=== PATIENT | male | born 1940 | race Caucasian/White ===

== ENCOUNTER 2018-05-02 18:50 | Observation (INO) | payer OTHER ==
--- NOTE | 2018-05-02 19:36 | RAD REPORT ---
EXAM DESCRIPTION: CT - Head Brain Wo Cont - 05/02/2018 7:28 pm CLINICAL HISTORY: WEAKNESS CVA COMPARISON: No comparisons TECHNIQUE: All CT scans are performed using dose optimization technique as appropriate and may inclu de automated exposure control or mA/KV adjustment according to patient size. FINDINGS: No intracranial hemorrhage, hydrocephalus or extra-axial fluid collection.Advanced general ized brain atrophy is present with advanced periventricular and deep white matter chronic microvascul ar ischemic changes.Gliosis is seen in the left temporal lobe likely related to prior infarction. The paranasal sinuses and mastoids are clear. The calvarium is intact. IMPRESSION: No acute intracranial abnormality.
[2018-05-02] MEDS ORDERED: NA CHLORIDE 0.9% 1,000 ML ONE (19:37)
--- NOTE | 2018-05-02 19:48 | RAD REPORT ---
EXAM DESCRIPTION: RAD - Chest Single View - 05/02/2018 7:39 pm CLINICAL HISTORY: MALAISE Chest pain. COMPARISON: CHEST SINGLE VIEW dated 05/12/2015; CHEST SINGLE VIEW dated 04/23/2015 FINDINGS: Portable technique limits examination quality. The lungs are grossly clear. The heart is normal in size. No displaced fractures. IMPRESSION: No acute intrathoracic process suspected.
[2018-05-02 20:22] LABS: Absolute Lymphocytes (CBC) 1.2 K/uL (0.7-4.9); Absolute Monocytes 0.7 K/uL (0.1-1.3); Basophils % 0.4 % (0-1.3); Hematocrit 39.3 % (39.6-49.0); Lymphocytes % 16.6 % (15.3-44.8); MCH 32.8 pg (27.0-35.0); MCV 97.4 fL (80-100); MPV 8.6 fL (7.6-11.3); Monocytes % 10.2 % (3.3-12.3); RBC Red Blood Cell Count 4.03 M/uL (4.33-5.43)
[2018-05-02 20:37] LABS: Urine Blood TRACE (NEG); Urine Glucose NEGATIVE (NEG); Urine Protein NEGATIVE (NEG); Urine pH 7.5 (5.0-7.0)
[2018-05-02 20:43] LABS: Urine Bacteria NONE SEEN /HPF (NONE SEEN); Urine Culture Reflex Order NOT NEEDED; Urine RBC <5 /HPF (NONE SEEN)
[2018-05-02 20:47] LABS: Albumin 3.2 g/dL (3.4-5.0); Bilirubin Direct 0.2 mg/dL (0-0.2); Bilirubin Total 0.4 mg/dL (0.2-1.0); Magnesium 2.2 mg/dL (1.8-2.4); Potassium 4.6 mmol/L (3.5-5.1); Protein, Total 6.8 g/dL (6.4-8.2); Troponin (Emerg Dept Use Only) 0.02 ng/mL (0.0-0.045)
[2018-05-02 22:48] LABS: Arterial Blood Carboxyhemoglob 1.2 % (0-1.5); Blood Gas Oxyhemoglobin 96.4 % (94-97); Blood O2 Saturation 98.4 % (92-98.5)
--- NOTE | 2018-05-02 23:07 | EDPHYS ---
Physician Documentation [facility] Name: Bo Fitzpatrick Age: 77 yrs Sex: Male : 1940 Arrival Date: 05/02/2018 Time: 18:51 Bed 6 Private MD: ED Physician Eleazar Ordonez HPI: 05/02 23:48 This 77 yrs old Male presents to ER via EMS with complaints of altered mental gs status. 23:48 The patient's problem is reported as altered mental status, disoriented to place, time. gs Onset: The symptoms/episode began/occurred this morning. Duration: The episode is continuous. Associated signs and symptoms: Pertinent negatives: headache, seizure. Severity of symptoms: At their worst the symptoms were moderate in the emergency department the symptoms are unchanged. The patient has experienced similar episodes in the past, a few times. Historical: - Allergies: 19:02 No Known Allergies; sv - Home Meds: 19:28 allopurinol 300 mg Oral tab 1 tab once daily [Active]; aspirin 81 mg Oral TbEC 1 tab ak1 once daily [Active]; Colace 100 mg oral cap 1 cap once daily [Active]; Depakote Sprinkles 125 mg Oral cpSP 2 caps daily [Active]; Depakote Sprinkles 125 mg Oral cpSP 4 caps at bedtime [Active]; Namenda 10 mg oral tab 1 tab 2 times per day [Active]; senna 8.6 mg oral tab 1 tabs once daily [Active]; trazodone 100 mg Oral tab 1 tab at bedtime [Active]; acetaminophen-codeine 300-30 mg Oral tab 1 tab PRN [Active]; - PMHx: 19:02 Gout; CVA; psychotic disorder with delusions; UTI; Dementia; sv - PSHx: 19:02 Heart stents; prostatectomy; sv - Immunization history:: Adult Immunizations unknown. - Social history:: Smoking status: Patient/guardian denies using tobacco. - Ebola Screening: : No symptoms or risks identified at this time. ROS: 23:48 All other systems are negative. gs Exam: 23:48 Eyes: Pupils equal round and reactive to light, extra-ocular motions intact. Lids and gs lashes normal. Conjunctiva and sclera are non-icteric and not injected. Cornea within normal limits. Periorbital areas with no swelling, redness, or edema. Chest/axilla: Normal chest wall appearance and motion. Nontender with no deformity. No lesions are appreciated. Cardiovascular: Regular rate and rhythm with a normal S1 and S2. No gallops, murmurs, or rubs. Normal PMI, no JVD. No pulse deficits. Respiratory: Lungs have equal breath sounds bilaterally, clear to auscultation and percussion. No rales, rhonchi or wheezes noted. No increased work of breathing, no retractions or nasal flaring. Abdomen/GI: Soft, non-tender, with normal bowel sounds. No distension or tympany. No guarding or rebound. No evidence of tenderness throughout. Back: No spinal tenderness. No costovertebral tenderness. Full range of motion. Skin: Warm, dry with normal turgor. Normal color with no rashes, no lesions, and no evidence of cellulitis. MS/ Extremity: Pulses equal, no cyanosis. Neurovascular intact. Full, normal range of motion. 23:48 Constitutional: The patient appears alert, awake. 23:48 Neuro: Orientation: to person, Cranial nerves: CN II- XII are normal as tested, Motor: moves all fours, strength is 5/5 in all extremities, Sensation: no acute changes, pin prick testing is normal. 23:51 ECG was reviewed by the Attending Physician. Vital Signs: 19:02 BP 160 / 79; Pulse 71; Resp 16; Temp 98.9(TE); Pulse Ox 98% ; sv 20:19 BP 166 / 100; Pulse 66; Resp 14; Temp 98.6; Pulse Ox 98% on R/A; Pain 0/10; ak1 21:12 BP 172 / 95; Pulse 92; Resp 15; Pulse Ox 99% on R/A; ak1 05/03 00:23 BP 126 / 66; Pulse 63; Resp 14; Temp 98.3; Pulse Ox 97% on R/A; Pain 0/10; ak1 MDM: 05/02 19:12 Patient medically screened. 23:48 Differential diagnosis: CVA, TIA, metabolic disorder, drug effects. Data reviewed: vital signs, nurses notes. Response to treatment: the patient's symptoms have mildly improved after treatment, and as a result, I will admit patient. 05/02 19:14 Order name: Basic Metabolic Panel; Complete Time: 20:57 05/02 19:14 Order name: CBC with Diff; Complete Time: 20:47 05/02 19:14 Order name: LFT's; Complete Time: 20:57 05/02 19:14 Order name: Magnesium; Complete Time: 20:57 05/02 19:14 Order name: NT PRO-BNP; Complete Time: 20:57 05/02 19:14 Order name: PT-INR; Complete Time: 20:47 05/02 19:14 Order name: Troponin (emerg Dept Use Only); Complete Time: 20:57 05/02 19:14 Order name: XRAY Chest (1 view); Complete Time: 20:07 05/02 19:14 Order name: Urine Microscopic Only; Complete Time: 20:47 05/02 20:21 Order name: Urine Dipstick--Ancillary (enter results); Complete Time: 20:47 em 05/02 22:30 Order name: ABG; Complete Time: 23:42 05/02 22:30 Order name: AMMONIA; Complete Time: 23:06 05/02 23:51 Order name: Depakote 05/03 00:11 Order name: Valproic Acid (Depakene) Level EDTN 05/02 19:14 Order name: EKG; Complete Time: 19:15 05/02 19:14 Order name: Cardiac monitoring; Complete Time: 20:02 05/02 19:14 Order name: EKG - Nurse/Tech; Complete Time: 20:02 05/02 19:14 Order name: IV Saline Lock; Complete Time: 20:03 05/02 19:14 Order name: Labs collected and sent; Complete Time: 20:03 05/02 19:14 Order name: O2 Per Protocol; Complete Time: 20:03 05/02 19:14 Order name: O2 Sat Monitoring; Complete Time: 20:03 05/02 19:14 Order name: Urine Dipstick-Ancillary (obtain specimen); Complete Time: 19:34 05/02 19:14 Order name: CT Head Brain wo Cont; Complete Time: 20:07 05/02 19:35 Order name: EKG - Nurse/Tech; Complete Time: 20:01 ak1 EC:51 Rate is 79 beats/min. Rhythm is regular. [place] interval is normal. QRS interval is normal. gs QT interval is normal. T waves are Flattened. Clinical impression: NSR w/ Non-specific ST/T Changes. Interpreted by me. Administered Medications: 19:50 Drug: NS 0.9% 500 ml Route: IV; Rate: bolus; Site: right hand; ak1 20:21 Follow up: IV Status: Completed infusion ak1 23:56 Drug: NS 0.9% 1000 ml Route: IV; Rate: 125 ml/hr; Site: right hand; ak1 05/03 00:00 Follow up: IV Status: Infusion continued upon admission ak1 Disposition: 05/02/18 23:06 Hospitalization ordered by Mitzi Bundy for Observation. Preliminary diagnosis is Altered mental status, unspecified. - Bed requested for Telemetry/MedSurg (observation). - Status is Observation. ak1 - Condition is Stable. - Problem is new. - Symptoms have improved. UTI on Admission? No Signatures: Dispatcher [employer] EDMarisol Messer RN RN Fabiola Bustos RN RN bb Krenek, Amber, RN RN [facility] Eleazar Ordonez MD MD Corrections: (The following items were deleted from the chart) 05/02 23:48 23:06 Hospitalization Ordered by Mitzi Bundy MD for Observation. Preliminary bb diagnosis is Altered mental status, unspecified. Bed requested for Telemetry/MedSurg (observation). Status is Observation. Condition is Stable. Problem is new. Symptoms have improved. UTI on Admission? No. gs 05/03 00:53 05/02 23:48 05/02/2018 23:06 Hospitalization Ordered by Mitzi Bundy MD for ak1 Observation. Preliminary diagnosis is Altered mental status, unspecified. Bed requested for Telemetry/MedSurg (observation). Status is Observation. Condition is Stable. Problem is new. Symptoms have improved. UTI on Admission? No. bb
--- NOTE | 2018-05-02 23:07 | ER ---
Nurse's Notes [facility] Name: Bo Fitzpatrick Age: 77 yrs Sex: Male : 1940 Arrival Date: 05/02/2018 Time: 18:51 Bed 6 Private MD: Diagnosis: Altered mental status, unspecified Presentation: 05/02 18:45 Presenting complaint: EMS states: Pt lives at [facility], staff reported that he sv started leaning forward and was unable to walk today around 1700. Pt normally walks around the IN. BP 162/86 HR-82 RR-14 96% RA. Care prior to arrival: None. 18:45 Acuity: DEVYN 3 sv 18:45 Method Of Arrival: EMS: [facility] sv 19:00 Transition of care: patient was received from another setting of care (long-term care facility), [facility]. Onset of symptoms was May 02, 2018 at 17:00. Risk Assessment: Do you want to hurt yourself or someone else? Patient reports no desire to harm self or others. Initial Sepsis Screen: Does the patient meet any 2 criteria? No. Patient's initial sepsis screen is negative. Does the patient have a suspected source of infection? No. Patient's initial sepsis screen is negative. Triage Assessment: 18:45 General: Appears in no apparent distress. comfortable, Behavior is cooperative. Pain: sv Denies pain. Neuro: Level of Consciousness is awake, alert, Oriented to person. Neuro: pt unable to follow direction. Respiratory: Respiratory effort is even, unlabored, Respiratory pattern is regular, symmetrical. Derm: Skin is normal. Historical: - Allergies: 19:02 No Known Allergies; sv - Home Meds: 19:28 allopurinol 300 mg Oral tab 1 tab once daily [Active]; aspirin 81 mg Oral TbEC 1 tab ak1 once daily [Active]; Colace 100 mg oral cap 1 cap once daily [Active]; Depakote Sprinkles 125 mg Oral cpSP 2 caps daily [Active]; Depakote Sprinkles 125 mg Oral cpSP 4 caps at bedtime [Active]; Namenda 10 mg oral tab 1 tab 2 times per day [Active]; senna 8.6 mg oral tab 1 tabs once daily [Active]; trazodone 100 mg Oral tab 1 tab at bedtime [Active]; acetaminophen-codeine 300-30 mg Oral tab 1 tab PRN [Active]; - PMHx: 19:02 Gout; CVA; psychotic disorder with delusions; UTI; Dementia; sv - PSHx: 19:02 Heart stents; prostatectomy; sv - Immunization history:: Adult Immunizations unknown. - Social history:: Smoking status: Patient/guardian denies using tobacco. - Ebola Screening: : No symptoms or risks identified at this time. Screenin:16 Abuse screen: Denies threats or abuse. Denies injuries from another. Nutritional ak1 screening: No deficits noted. Tuberculosis screening: No symptoms or risk factors identified. Fall Risk Fall in past 12 months (25 points). Gait- Weak (10 pts.). Mental Status- Overestimates/Forgets Limitations (15 pts.). Assessment: 19:23 Reassessment: pt at bedside. pt with out of hospital DNR. pt on swallow ak1 precautions at [facility], needs soft diet and crushed pills. pt with hx falls. 20:04 General: Appears in no apparent distress. Pain: Denies pain. Neuro: Level of ak1 Consciousness is awake, confused, Oriented to pt not speaking when asked questions. pt selectively speaking. . Cardiovascular: No deficits noted. Respiratory: No deficits noted. GI: No signs and/or symptoms were reported involving the gastrointestinal system. : pt straight cathed and brief changed. pt tolerated well. EENT: No signs and/or symptoms were reported regarding the EENT system. Derm: Bruising that is dark purple, on right hip. 21:11 Reassessment: Patient appears in no apparent distress at this time. No changes from ak1 previously documented assessment. Patient is alert, oriented x 3, equal unlabored respirations, skin warm/dry/pink. Patient states symptoms have improved. pt given apple sauce with at bedside to administer. . Vital Signs: 19:02 BP 160 / 79; Pulse 71; Resp 16; Temp 98.9(TE); Pulse Ox 98% ; sv 20:19 BP 166 / 100; Pulse 66; Resp 14; Temp 98.6; Pulse Ox 98% on R/A; Pain 0/10; ak1 21:12 BP 172 / 95; Pulse 92; Resp 15; Pulse Ox 99% on R/A; ak1 11/14 00:23 BP 126 / 66; Pulse 63; Resp 14; Temp 98.3; Pulse Ox 97% on R/A; Pain 0/10; ak1 ED Course: 05/02 18:51 Patient arrived in ED. sv 18:53 Marisol Reyes, SHELLY is Primary Nurse. sv 18:59 Triage completed. sv 19:01 Eleazar Ordonez MD is Attending Physician. gs 19:02 Arm band placed on Patient placed in an exam room, on a stretcher, on pulse oximetry. sv 19:04 Patient has correct armband on for positive identification. Placed in gown. Bed in low sv position. Call light in reach. Side rails up X2. Report given to Yadi BRAVO. Pulse ox on. NIBP on. 19:06 Primary Nurse role handed off by Marisol Reyes, SHELLY sv 19:16 Julieta Hernandez RN is Primary Nurse. ak1 19:[address] via stretcher. vr 19:28 CT Head Brain wo Cont In Process Unspecified. EDMS 19:30 Inserted saline lock: 22 gauge in right hand, using aseptic technique. Blood collected. ak1 19:30 Straight cath inserted, using sterile technique, 16 Fr. Specimen obtained. Patient ak1 tolerated well. 19:40 XRAY Chest (1 view) In Process Unspecified. EDMS 20:24 Door closed. Lights dimmed. Cleaned of incontinence. Linen changed. ak1 22:49 No provider procedures requiring assistance completed. Patient admitted, IV remains in ak1 place. 23:06 Mitzi Bundy MD is Hospitalizing Provider. gs Administered Medications: 19:50 Drug: NS 0.9% 500 ml Route: IV; Rate: bolus; Site: right hand; ak1 20:21 Follow up: IV Status: Completed infusion ak1 23:56 Drug: NS 0.9% 1000 ml Route: IV; Rate: 125 ml/hr; Site: right hand; ak1 05/03 00:00 Follow up: IV Status: Infusion continued upon admission ak1 Outcome: 05/02 23:06 Decision to Hospitalize by Provider. gs 23:51 Condition: good ak1 23:51 Instructed on the need for admit. 05/03 00:23 Admitted to Tele accompanied by tech, family with patient, via stretcher, room 402, ak1 with chart. 00:53 Patient left the ED. ak1 Signatures: Dispatcher [employer] EDMarisol Messer, RN Tabatha Masters Amber, RN RN ak1 Eleazar Ordonez MD MD
[2018-05-03] MEDS ORDERED: ACETAMINOPHEN 500 MG TAB PO PRN (01:01)
[2018-05-03] MEDS: NA CHLORIDE 0.9% 1,000 ML IV SCH ×2 (01:35→11:01)
[2018-05-03 02:15] VITALS: BMI 34.4
[2018-05-03 02:43] VITALS: O2SAT 97
--- NOTE | 2018-05-03 04:48 | P.HP ---
Certification for Inpatient Patient admitted to: Observation With expected LOS: <2 Midnights Practitioner: I am a practitioner with admitting privileges, knowledge of patient current condition, hospital course, and medical plan of care. Services: Services provided to patient in accordance with Admission requirements found in Title 42 Section 412.3 of the Code of Federal Regulations Patient History Date of Service: 05/03/18 Reason for admission: Acute encephalopathy History of Present Illness: Mr Fitzpatrick is a 77-year-old male with history of dementia, dyslipidemia, CAD, CVA reason resident of a local [facility]. Today the patient was more lethargic than usual, his stated that he was unable to walk due to weakness. There is no history of fever chills cough, shortness of breath, or chest pain. His is concerned about possible over-medication, since he has been started in taking Tylenol 3 for back pain. Lab work shows normal WBC count, CT head without acute abnormality. During his stay in ER, he was mild agitated. Allergies NKDA Allergy (Uncoded 05/13/15 04:49) Unknown Home medications list reviewed: Yes Home Medications: Allopurinol [Zyloprim*] 300 mg PO DAILY 04/23/15 Aspirin [Lisa Chewable Aspirin] 81 mg PO BEDTIME 04/23/15 Memantine HCl [Namenda*] 10 mg PO BID 04/23/15 Codeine/APAP [Tylenol #3*] 1 tab PO BID PRN 05/03/18 Divalproex [Depakote Sprinkle*] 2 tab PO DAILY 05/03/18 Divalproex [Depakote Sprinkle*] 4 cap PO BEDTIME 05/03/18 Docusate [Colace Cap*] 100 mg PO DAILY 05/03/18 Ibuprofen [Motrin*] 200 mg PO Q8H PRN 05/03/18 Mag Hydroxide 8% [Milk Of Magnesia*] 30 ml PO Q6H PRN 05/03/18 Sennosides [Senna] 1 tab PO DAILY 05/03/18 Trazodone [Desyrel*] 100 mg PO DAILY 05/03/18 - Past Medical/Surgical History Diabetic: No -: [place] -: CVA 2010 -: Hyperlipidemia -: Prostate Ca 2004 -: Dementia -: Gout -: HTN -: Prostatectomy -: Heart stents - Family History Sister -: Other (see notes) Notes: Dementia Mother -: Stroke Father -: Stroke - Social History Smoking Status: Never smoker Alcohol use: No CD- Drugs: No Caffeine use: Yes Place of Residence: [facility] Review of Systems 10-point ROS is otherwise unremarkable Physical Examination - Vital Signs Temperature: 98.3 F Blood Pressure: 166/80 Pulse: 84 Respirations: 14 Pulse Ox (%): 98 - Physical Exam General: Alert, Demented, Confused HEENT: Atraumatic, PERRLA, Mucous membr. moist/pink, Sclerae nonicteric Neck: Supple, 2+ carotid pulse no bruit, No LAD, Without JVD or thyroid abnormality Respiratory: Clear to auscultation bilaterally, Normal air movement Cardiovascular: Normal S1 S2, No gallops Gastrointestinal: Normal bowel sounds, No tenderness Musculoskeletal: No tenderness Integumentary: No rashes Neurological: Normal strength at 5/5 x4 extr, Normal tone, Normal affect Lymphatics: No axilla or inguinal lymphadenopathy - Studies Laboratory Data (last 24 hrs) 05/02/18 19:45: PT 11.8, INR 1.00 05/02/18 19:45: WBC 7.2, Hgb 13.2 L, Hct 39.3 L, Plt Count 179 05/02/18 19:45: Sodium 145, Potassium 4.6, BUN 22 H, Creatinine 1.30, Glucose 107 H, Magnesium 2.2, Total Bilirubin 0.4, AST 23, ALT 16, Alkaline Phosphatase 104 Assessment and Plan - Problems (Diagnosis) (1) Acute encephalopathy Current Visit: Yes Status: Acute (2) Weakness Current Visit: Yes Status: Acute (3) Dementia Current Visit: Yes Status: Acute Qualifiers: Dementia type: unspecified type - Plan The patient will be admitted to the hospital due to acute encephalopathy on top of his dementia. There is no obvious sign of acute infection. CT scan of the head shows no acute abnormality. There is a possibility that the patient has been more lethargic due to narcotic medication. Consider acute CVA, will order brain MRI. - Advance Directives Does patient have a Living Will: Yes Does patient have a Durable POA for Healthcare: Yes - Code Status/Comfort Care Code Status Assessed: Yes Code Status: Full Code
[2018-05-03 06:00] LABS: Barbiturates NEGATIVE (NEGATIVE); Benzodiazepines NEGATIVE (NEGATIVE); Cocaine NEGATIVE (NEGATIVE); METHAMPHETAM NEGATIVE (NEGATIVE); Methadone NEGATIVE (NEGATIVE); Opiates NEGATIVE (NEGATIVE); Phencyclidine NEGATIVE (NEGATIVE); THC Cannibis NEGATIVE (NEGATIVE)
[2018-05-03] MEDS ORDERED: LORazepam 2 MG/ML VIAL IV ONE (08:47)
[2018-05-03] MEDS ORDERED: ENOXAPARIN 40 MG/0.4 ML SQ SCH (09:00)
--- NOTE | 2018-05-03 10:10 | EKG ---
Test Date: 2018-05-02 Test Time: 19:38:43 Ornithology Teacher: CLARIBEL MEASUREMENT RESULTS: Intervals: Rate: 79 NV: 134 QRSD: 74 QT: 368 QTc: 421 Deloit: P: 64 NV: 134 QRS: -9 T: 67 INTERPRETIVE STATEMENTS: Normal sinus rhythm Nonspecific ST and T wave abnormality Abnormal ECG Compared to ECG 05/12/2015 14:40:39 Sinus bradycardia no longer present Prolonged QT interval no longer present ST (T wave) deviation still present Electronically Signed On 05-03-18 10:09:19 PICKUP DRIVER by Cecil Alonso
[2018-05-03] MEDS ORDERED: MAGNESIUM HYDROXIDE 8% 30 ML PO PRN (10:43)
[2018-05-03 12:04] VITALS: BP 128/76; TEMP 97.7
[2018-05-03] MEDS ORDERED: ASPIRIN 81 MG CHEWABLE TABLET PO SCH (21:00)
[2018-05-03] MEDS ORDERED: MEMANTINE HCL 10 MG TABLET PO SCH (21:00)
[2018-05-03] MEDS ORDERED: DIVALPROEX NA 125 MG CAP PO SCH (21:00)
[2018-05-04] MEDS ORDERED: DOCUSATE NA 100 MG CAP PO SCH (09:00)
[2018-05-04] MEDS ORDERED: ALLOPURINOL 300 MG TAB PO SCH (09:00)
[2018-05-04] MEDS ORDERED: SENOSIDES 8.6 MG TAB PO SCH (09:00)
[2018-05-04] MEDS ORDERED: DIVALPROEX NA 125 MG CAP PO SCH (09:00)
--- NOTE | 2018-05-04 10:07 | DS ---
Date of Discharge: 05/03/2018 Discharge Diagnoses: 1.Acute metabolic encephalopathy. 2.Generalized weakness. 3.Alzheimer's dementia without behavioral disturbance. Hospital Course: The patient is a 77-year-old male with past medical history of dementia, dyslipidem ia, coronary artery disease, history of CVA, who [facility] a [facility]. The patient was sent in to the hospital due to inability to stand up, according to the , who was contacted by the [facility]. The patient did not have any systemic symptoms. The patient was evaluated for change in his status. Head CT scan was done which did not show any acute intracranial abnormality. The pa tient did have advanced generalized brain atrophy. Gliosis seen in the left temporal lobe, likely re lated to prior infarction. His chest x-ray and UA were negative for any acute infection. The patien t, according to the , was back to his baseline. Workup did not show any significant abnormality. If the patient was back to his baseline, it was thought that this was likely related to the narcoti c pain medications that the patient was recently started on, Tylenol with Codeine was discontinued. The patient was then transferred back to [facility] in a stable condition. Activity: Fall precautions. Diet: Heart healthy. Careful hand feeding. Followup: Follow up with primary care physician in 2 to 3 days. Return to ER for worsening conditio n. Medications: As per medication reconciliation list. Physical Examination: General: Asleep, but arousable, not oriented, able to regulate his . CV: S1 and S2. No murmurs. Respiratory: Moving air well bilaterally. Abdomen: Abdomen is soft, nontender, nondistended. Positive bowel sounds. Extremities: No clubbing, cyanosis, or edema. Neuro: Moves all 4 extremities. Speech is normal. No facial asymmetry. SA/MODL Voice ID: [id number] Report ID: [id number]
== END 2018-05-03 15:29 ==
LOC: ER 18:50 → ERHOLD 23:07 → 4TH 05-03 00:33
PROVIDERS: ADMIT Internal Medicine; ATTEND Internal Medicine
DX: G93.41 Metabolic encephalopathy (principal); R53.1 Weakness; G30.9 Alzheimer's disease, unspecified; F02.80 Dementia in other diseases classified elsewhere, unspecified severity, without behavioral disturbance, psychotic disturbance, mood disturbance, and anxiety; I25.10 Atherosclerotic heart disease of native coronary artery without angina pectoris; I25.2 Old myocardial infarction; E78.5 Hyperlipidemia, unspecified; Z85.46 Personal history of malignant neoplasm of prostate; Z79.82 Long term (current) use of aspirin; Z86.73 Personal history of transient ischemic attack (TIA), and cerebral infarction without residual deficits
CPT/HCPCS: 36415; 51702; 70450; 71045; 80048; 80076; 80164; 80307 ×8; 82140; 82805; 83735; 83880; 84484; 85025; 85610; 93005; 96360; 97163; 99285; G0378 ×2; J1650; J7030 ×2; 81003; 81015